=== PATIENT | male | born 1990 | race Caucasian/White ===

== ENCOUNTER 2019-12-07 01:28 | Emergency (ER) | payer SELFPAY ==
[~2019-12-07] VITALS: Ht 177.8 cm; Wt 70.8 kg
[~2019-12-07 01:28] MED LIST: IBUP-1842
[2019-12-07 01:31] VITALS: BP 132/88
[2019-12-07] MEDS ORDERED: NACL 0.9% 1,000 ML IV ONE (01:35)
--- NOTE | 2019-12-07 01:35 | NUR ---
KLARISSA ALS TO BED 09
--- NOTE | 2019-12-07 02:10 | NUR ---
KLARISSA FROM HOME FOR HEROIN OVERDOSE. PER EMS PT REPORTS THAT HE WAS FOUND UNRESPONSIVE AND IS A KNOWN HEROIN USER, EMS REPORTS THAT HE WAS GIVEN 0.2 NARCAN BY HIS BROTHER. PT IS IN BED WITH ALL CARDIAC MONITORING. NO DISTRESS NOTED. EQUAL CHEST RISE AND FALL.
--- NOTE | 2019-12-07 03:07 | NUR ---
NOTIFIED MD PABLO REGARDING PT'S RESPIRATORY RATE OF 7-9. PT IS AROUSABLE AND ABLE TO COMMUNICATE, A/O X 3. NO FURTHER ORDERS GIVEN. PT REMAINS ON BEDSIDE MONITOR.
--- NOTE | 2019-12-07 05:11 | NUR ---
PT TO BE DISCHARGED, WAITING FOR TAXI VOUCHER FROM NURSING [employer] P[employer] TESTING.
[2019-12-07 05:48] VITALS: BP 120/78
--- NOTE | 2019-12-07 05:51 | NUR ---
[facility] CALLED FOR PATIENT FOR TRANSPORT HOME.
--- NOTE | 2019-12-07 05:51 | NUR ---
Patient discharged with v/s stable. Written and verbal after care instructions given and explained. Patient alert, oriented and verbalized understanding of instructions. Ambulatory with steady gait. All questions addressed prior to discharge. ID band removed. Patient advised to follow up with PMD. Rx of NARCAN given. Patient educated on indication of medication including possible reaction and side effects. Opportunity to ask questions provided and answered.
== END 2019-12-07 05:51 | disposition home or self-care (01) ==
LOC: MED 01:28
DX: T40.1X1A Poisoning by heroin, accidental (unintentional), initial encounter (principal); Z79.899 Other long term (current) drug therapy; Y92.89 Other specified places as the place of occurrence of the external cause
CPT/HCPCS: 99285; J7030